=== PATIENT | female | born 1955 | race Caucasian/White ===

== ENCOUNTER 2018-08-25 22:52 | Emergency (ER) | payer MEDICARE ==
[2018-08-25 23:33] LABS: RAPID GROUP A STREP NEGATIVE (NEGATIVE)
== END 2018-08-26 00:34 | disposition home or self-care (01) ==
LOC: EDH 22:52
DX: J00 Acute nasopharyngitis [common cold] (principal); Z88.0 Allergy status to penicillin
CPT/HCPCS: 87804; 87880